=== PATIENT | male | born 1980 | race Caucasian/White ===

== ENCOUNTER 2020-09-24 14:14 | Inpatient (IN) | payer OTHER ==
[2020-09-24 15:13] VITALS: BMI 31.6
[2020-09-24] MEDS ORDERED: MAGNESIUM HYDROX 2400MG/30ML ORAL SUSPENSION 30 ML CUP PO PRN (15:45)
[2020-09-24] MEDS ORDERED: IBUPROFEN 400 MG TABLET (FP) PO PRN (15:45)
[2020-09-24] MEDS ORDERED: ONDANSETRON *ODT* 4 MG TABLET SL PRN (15:45)
[2020-09-24] MEDS ORDERED: NICOTINE POLACRILEX 2 MG GUM BUC PRN (15:45)
[2020-09-24] MEDS ORDERED: MAG HYDROX/AL HYDROX/SIMETH 30 ML UNIT-DOSE CUP PO PRN (15:45)
[2020-09-24] MEDS ORDERED: MENTHOL/PHENOL 1 EACH UD MM PRN (15:45)
[2020-09-24] MEDS ORDERED: BISMUTH SUBSALICYLATE 524 MG/30 ML UD PO PRN (15:45)
[2020-09-24] MEDS ORDERED: MAGNESIUM CITRATE 300 ML BOTTLE PO PRN (15:45)
[2020-09-24] MEDS ORDERED: ACETAMINOPHEN 325 MG TABLET (FP) PO PRN ×2 (15:45)
[2020-09-24] MEDS: NICOTINE 21 MG/24 HOURS TOPICAL PATCH TD SCH (17:46)
[2020-09-24] MEDS: hydrOXYzine PAMOATE 25 MG CAPSULE (FP) PO SCH ×2 (17:47→22:13)
[2020-09-24] MEDS: diazePAM 5 MG TABLET PO SCH ×2 (17:47→22:14)
[2020-09-24] MEDS ORDERED: MELATONIN 5 MG TABLETS PO SCH (22:00)
[2020-09-24] MEDS: THIAMINE HCL 100 MG TABLET (FP) PO SCH (22:13)
[2020-09-24] MEDS: TOLNAFTATE 1% CREAM 15 GM TUBE TP SCH (22:16)
[2020-09-25] MEDS ORDERED: METHADONE HCL 5 MG TABLET ONE (04:53)
[2020-09-25] MEDS ORDERED: METHADONE HCL 40 MG DISPERSABLE TABLET ONE (04:53)
[2020-09-25] MEDS: diazePAM 5 MG TABLET PO SCH ×4 (05:28→22:45)
[2020-09-25] MEDS: METHADONE 120 MG, METHADONE 5 MG PO SCH (05:28)
[2020-09-25] MEDS: hydrOXYzine PAMOATE 25 MG CAPSULE (FP) PO SCH ×3 (05:29→15:06)
[2020-09-25] MEDS ORDERED: METHADONE HCL 10 MG TABLET PO SCH (06:00)
[2020-09-25] MEDS ORDERED: COLLOIDAL OATMEAL 1 BAR EACH TP PRN (07:36)
[2020-09-25] MEDS: PRENATAL VITAMINS W/ FOLIC ACID TABLET (FP) PO SCH (10:22)
[2020-09-25] MEDS: METHOCARBAMOL 500 MG TABLET PO PRN ×2 (10:22→22:46)
[2020-09-25] MEDS: TOLNAFTATE 1% CREAM 15 GM TUBE TP SCH ×2 (10:23→22:46)
[2020-09-25] MEDS: NICOTINE 21 MG/24 HOURS TOPICAL PATCH TD SCH (10:23)
[2020-09-25] MEDS: busPIRone HCL 5 MG TABLET PO SCH ×2 (12:05→22:44)
[2020-09-25 12:10] LABS: HEMATOCRIT 39.8 % (35.4-49); HEMOGLOBIN 13.5 GM/dL (11.7-16.9); MCH 31.2 pg (25.7-33.7); MEAN CELL VOLUME 91.9 fl (80-96); MEAN PLT VOLUME 8.6 fl (7.5-11.1); PLATELET COUNT 196 K/MM3 (134-434); RBC 4.33 M/mm3 (4.00-5.60); RDW 13.7 % (11.9-15.9); WHITE BLOOD COUNT 5.4 K/mm3 (4.0-10.0)
[2020-09-25 12:23] LABS: ALBUMIN 3.2 g/dl (3.4-5.0); CALCIUM 8.9 mg/dL (8.5-10.1)
[2020-09-25 12:24] LABS: BLOOD UREA NITROGEN 18.6 mg/dL (7-18)
[2020-09-25 12:27] LABS: CREATININE 0.8 mg/dL (0.55-1.3)
[2020-09-25 12:28] LABS: BILIRUBIN,TOTAL 0.5 mg/dL (0.2-1); TOT PROT 6.8 g/dl (6.4-8.2)
[2020-09-25 13:04] LABS: HIV INTERPRETATION NEGATIVE (NEGATIVE)
[2020-09-25] MEDS ORDERED: hydrOXYzine PAMOATE 25 MG CAPSULE (FP) PO PRN (15:40)
[2020-09-25] MEDS: diazePAM 5 MG TABLET PO PRN (19:37)
[2020-09-25] MEDS: THIAMINE HCL 100 MG TABLET (FP) PO SCH (22:44)
[2020-09-25] MEDS: MELATONIN 5 MG TABLETS PO SCH (22:44)
[2020-09-25] MEDS: PRAZOSIN HCL 1 MG CAPSULE PO SCH (22:45)
[2020-09-26] MEDS ORDERED: METHADONE HCL 40 MG DISPERSABLE TABLET ONE (04:13)
[2020-09-26] MEDS ORDERED: METHADONE HCL 5 MG TABLET ONE (04:14)
[2020-09-26] MEDS: METHADONE 120 MG, METHADONE 5 MG PO SCH (05:20)
[2020-09-26] MEDS: diazePAM 5 MG TABLET PO SCH ×3 (05:20→22:22)
[2020-09-26] MEDS ORDERED: hydrOXYzine PAMOATE 25 MG CAPSULE (FP) PO PRN (08:35)
[2020-09-26] MEDS: TOLNAFTATE 1% CREAM 15 GM TUBE TP SCH ×2 (10:33→22:22)
[2020-09-26] MEDS: busPIRone HCL 5 MG TABLET PO SCH ×2 (10:34→22:22)
[2020-09-26] MEDS: PRENATAL VITAMINS W/ FOLIC ACID TABLET (FP) PO SCH (10:34)
[2020-09-26] MEDS: NICOTINE 21 MG/24 HOURS TOPICAL PATCH TD SCH (10:34)
[2020-09-26] MEDS: diazePAM 5 MG TABLET PO PRN (17:25)
[2020-09-26] MEDS: PRAZOSIN HCL 1 MG CAPSULE PO SCH (22:22)
[2020-09-26] MEDS: THIAMINE HCL 100 MG TABLET (FP) PO SCH (22:22)
[2020-09-26] MEDS: MELATONIN 5 MG TABLETS PO SCH (22:23)
[2020-09-27] MEDS ORDERED: METHADONE HCL 5 MG TABLET ONE (04:29)
[2020-09-27] MEDS ORDERED: METHADONE HCL 40 MG DISPERSABLE TABLET ONE (04:29)
[2020-09-27] MEDS: METHADONE 120 MG, METHADONE 5 MG PO SCH (05:14)
[2020-09-27] MEDS ORDERED: diazePAM 5 MG TABLET PO SCH (06:00)
[2020-09-27 09:33] VITALS: BP 104/66; PULSE 60; TEMP 97.3
[2020-09-28] MEDS ORDERED: diazePAM 5 MG TABLET PO ONE (06:00)
== END 2020-09-27 10:00 | disposition left against medical advice (07) | DRG 770 ==
LOC: YASAS 14:14 → Y3N 15:49
PROVIDERS: ADMIT Allergy & Immunology; ATTEND Allergy & Immunology
PROC: HZ2ZZZZ Detoxification Services for Substance Abuse Treatment (ICD-10-PCS; principal; 2020-09-24)
DX: F10.230 Alcohol dependence with withdrawal, uncomplicated (principal); F13.230 Sedative, hypnotic or anxiolytic dependence with withdrawal, uncomplicated; F11.20 Opioid dependence, uncomplicated; F14.20 Cocaine dependence, uncomplicated; F16.20 Hallucinogen dependence, uncomplicated; F12.20 Cannabis dependence, uncomplicated; F17.210 Nicotine dependence, cigarettes, uncomplicated; F19.282 Other psychoactive substance dependence with psychoactive substance-induced sleep disorder; F19.280 Other psychoactive substance dependence with psychoactive substance-induced anxiety disorder; F19.24 Other psychoactive substance dependence with psychoactive substance-induced mood disorder; F43.10 Post-traumatic stress disorder, unspecified; F41.9 Anxiety disorder, unspecified; B18.2 Chronic viral hepatitis C; B35.3 Tinea pedis; Z91.410 Personal history of adult physical and sexual abuse; Z86.59 Personal history of other mental and behavioral disorders
CPT/HCPCS: 36415; 80053; 85027; 86780; 87389; 93005; 93010; C9803; U0003